=== PATIENT | male | born 1995 | race Hispanic/Latino ===

== ENCOUNTER 2018-04-22 22:16 | Emergency (ER) | payer SELFPAY ==
[2018-04-22] MEDS ORDERED: Bacitracin Zinc 1 Packet ONE (23:42)
== END 2018-04-22 23:38 | disposition home or self-care (01) ==
LOC: ERS 22:16
DX: S51.812A Laceration without foreign body of left forearm, initial encounter (principal); W26.0XXA Contact with knife, initial encounter
CPT/HCPCS: 12002